=== PATIENT | male | born 1980 | race Caucasian/White ===

== ENCOUNTER 2018-02-04 15:46 | Emergency (ER) | payer OTHER ==
--- NOTE | 2018-02-04 15:56 | PDOC ---
History of Present Illness - General Chief Complaint: Injury Stated Complaint: RT HAND LACERATION Time Seen by Provider: 02/04/18 15:54 History Source: Patient Exam Limitations: No Limitations - History of Present Illness Initial Comments: Pt is a 37 yo M, with no significant PMH, who is presenting with complaints of a hand laceration to his R palm on a circular javi. Pt was sanding a wooden table, when he slipped, cutting the palmar side of his R hand. Pt does not take anticoagulant medication and bleeding was controlled at home with pressure. He did not take any medications before arrival, but he did soak his hand in clean cold water and held pressure with a clean towel. Pt denies any loss of strength or sensation in the arm, hand, or fingers. Pt denies any recent fevers/chills, headache, vision changes, chest pain, palpitations, SOB, nausea/vomiting, abdominal pain, urinary symptoms, diarrhea/constipation, or leg swelling. 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 Pt cannot recall last tetanus booster. Social: Pt denies any cigarette, alcohol, or drug use. Pt denies any recent travel or sick contacts. Surgical: no relevant history Family: no relevant history 02/07/18 18:14 Past History - Travel Traveled outside of the country in the last 30 days: No Close contact w/someone who was outside of country & ill: No - Past Medical History Allergies/Adverse Reactions: Allergies Allergy/AdvReac Type Severity Reaction Status Date / Time No Known Allergies Allergy Verified 02/04/18 15:47 Home Medications: Ambulatory Orders NK [No Known Home Medication] 02/04/18 Cardiac Disorders: No Diabetes: No HTN: No - Surgical History Orthopedic Surgery: No Review of Systems - Review of Systems Able to Perform ROS?: Yes Is the patient limited Setswana proficient: No Constitutional: No: Chills, Fever, Weakness HEENTM: No: Recent change in vision, Throat Pain Respiratory: No: Cough, Shortness of Breath Cardiac (ROS): No: Chest Pain, Lightheadedness, Syncope ABD/GI: No: Constipated, Diarrhea, Nausea, Poor Appetite, Poor Fluid Intake, Vomiting : No: Dysuria, Frequency Musculoskeletal: Yes: See HPI, Other (mild pain over site of laceration on R hand). No: Back Pain, Joint Pain, Muscle Weakness Integumentary: Yes: See HPI (laceration). No: Rash Neurological: No: Numbness, Paresthesia, Tingling, Weakness Psychiatric: No: Change in Appetite Endocrine: No: Increased Urine, Change in Weight Hematologic/Lymphatic: No: Anemia, Blood Clots, Easy Bleeding, Easy Bruising *Physical Exam - Physical Exam General Appearance: Yes: Nourished, Appropriately Dressed. No: Apparent Distress HEENT: positive: EOMI, [place], Normal ENT Inspection, Normal Voice, Pharynx Normal , Hearing Grossly Normal. negative: Scleral Icterus (R), Scleral Icterus (L), Pharyngeal Erythema, Tonsillar Exudate, Tonsillar Erythema Neck: positive: Trachea midline, Supple. negative: Tender, Rigid, Lymphadenopathy (R), Lymphadenopathy (L) Respiratory/Chest: positive: Lungs Clear, Normal Breath Sounds. negative: Chest Tender, Respiratory Distress, Accessory Muscle Use Cardiovascular: positive: Regular Rhythm, Regular Rate Vascular Pulses: Carotid (R): 4+, Carotid (L): 4+ Gastrointestinal/Abdominal: positive: Normal Bowel Sounds, Flat, Soft. negative : Tender, Organomegaly, Pulsatile Mass Rectal Exam: positive: deferred Lymphatic: negative: Adenopathy, Tenderness Musculoskeletal: positive: Normal Inspection, Other (normal ROM of forearm, wrist, hand, and fingers. ). negative: CVA Tenderness, Decreased Range of Motion Extremity: positive: Normal Capillary Refill, Normal Inspection, Normal Range of Motion, Pelvis Stable. negative: Tender Integumentary: positive: Normal Color, Dry, Warm, Other (~3-4 cm laceration over R palm, just inferior to 5th and 4th digits. No decreased sensation. Bleeding controlled. 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 negative: Numbness, Sensory Deficit Procedures - Laceration/Wound Repair Right Medial Volar Hand Wound Length: 2.6 to 5.0 cm Wound Explored: clean, no foreign body present Wound's Depth, Shape: superficial, linear Irrigated w/ Saline: Yes Betadine Prep: Yes Anesthesia: 1% Lidocaine Amount of Anesthetic (ccs): 3 Wound Debrided: minimal Wound Repaired With: Sutures Suture Size/Type: 5:0 Number of Sutures: 4 Layer Closure: No Sterile Dressing Applied: Yes Splint Applied: No Sling Applied: No Medical Decision Making - Medical Decision Making Pt was seen at bedside, also will be seen by attending Dr. Lyons. Pt presenting with complaints of a hand laceration to his R palm on a circular javi. Pt was sanding a wooden table, when he slipped, cutting the palmar side of his R hand. Pt does not take anticoagulant medication and bleeding was controlled at home with pressure. He did not take any medications before arrival. Pt denies any loss of strength or sensation in the arm, hand, or fingers. Pt denies any recent fevers/chills, headache, vision changes, chest pain, palpitations, SOB, nausea/vomiting, abdominal pain, urinary symptoms, diarrhea/constipation, or leg swelling. PE showed linear laceration across palm, just inferior to fifth and fourth digits of the R hand. Does not involve tendons, and pt can flex and extend all digits without difficulty. Radial pulse intact, strength and sensation of R hand , fingers, and forearm intact. Exam otherwise benign. Appears to be superficial laceration, no involvement of tendons. Can be closed with non-absorbable sutures, no deep-tissue sutures required. Provided 650 mg PO tylenol and boostrix for improvement of pain and tetanus prevention. Will continue to reassess pt and monitor for symptomatic improvement. 02/04/18 15:54 Sutures were placed using sterile technique (see procedure note). Bleeding well controlled. Extremities neurovascularly intact after intervention. Pain well controlled with tylenol. Advised pt to continue with OTC pain control at home if needed, and to follow up in the ER or PCP office for suture removal. Pt can be discharged to home with follow-up. Pt advised to follow-up with PCP in 1-2 days and can return to the ER in 7 days for suture removal. Strict return precautions provided with pt understanding. 02/04/18 16:59 02/07/18 18:09 *DC/Admit/Observation/Transfer Diagnosis at time of Disposition: Laceration - Discharge Dispostion Disposition: HOME Condition at time of disposition: Good Decision to Admit order: No - Referrals Referrals: [facility] [place] [Provider Group] - Patient Instructions Printed Discharge Instructions: How to Care for a Laceration After Repair Additional Instructions: keep clean and dry for 1 day then you may wash with mild soap and water return for redness, swelling , yellow discharge or any concerns for infection suture removal in 7 - 10 days here in emergency room. you were given a tetanus shot today and are good for 5 years. - Post Discharge Activity
[2018-02-04] MEDS ORDERED: ACETAMINOPHEN 325 MG TABLET (FP) PO ONE (16:07)
[2018-02-04] MEDS ORDERED: DIPHTH,PERTUSS(ACELL),TET 0.5 ML DISP.SYRIN IM ONE ×2 (16:07→16:19)
--- NOTE | 2018-02-04 16:15 | PDOC ---
Attending Attestation - Resident Resident Name: Nevin Chaparro - ED Attending Attestation I have performed the following: I have examined & evaluated the patient, The case was reviewed & discussed with the resident, I agree w/resident's findings & plan, Exceptions are as noted - HPI HPI: 02/04/18 16:08 37 yo male s/p laceration to his right hand was working with a javi sanding wood, suddenly slipped sandpaper edge cut his palm of right hand. 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 no numbness or weakness. happened just prior to arrival. unsure of last tetanus. - Physicial Exam PE: 02/04/18 16:15 awake alert lungs clear bilaterally heart rrr right hand gonzalez side with superficial laceration into subcut, at base of fourth andfifth fingers. just proximal to mcp flexion crease. distally n/v intact. full flexion at small and fourth finger pip, mcp dip . distally n/v intact. - Medical Decision Making 02/04/18 16:17 pt with laceration. will provide tetanus. lac repair. soaked with water and betadine prior. very superficial. instruction to return for signs of infection.s uture removal in 7 - 10 dayss
[2018-02-04 16:18] VITALS: BP 143/68; PULSE 77; TEMP 98.3; BMI 29.2
[2018-02-04] MEDS ORDERED: ACETAMINOPHEN 325 MG TABLET (FP) ONE (16:19)
== END 2018-02-04 17:01 | disposition home or self-care (01) ==
LOC: FER 15:46
PROC: 0HQFXZZ Repair Right Hand Skin, External Approach (ICD-10-PCS; principal; 2018-02-04)
PROC: 3E0234Z Introduction of Serum, Toxoid and Vaccine into Muscle, Percutaneous Approach (ICD-10-PCS; 2018-02-04)
DX: S61.411A Laceration without foreign body of right hand, initial encounter (principal); W31.2XXA Contact with powered woodworking and forming machines, initial encounter; Y93.89 Activity, other specified; Y92.9 Unspecified place or not applicable
CPT/HCPCS: 90715; 99282-25